=== PATIENT | male | born 1955 | race Caucasian/White ===

== ENCOUNTER 2021-03-30 17:16 | Emergency (ER) | payer OTHER ==
[~2021-03-30] VITALS: Ht 177.8 cm; Wt 90.0 kg
--- NOTE | 2021-03-30 17:28 | NUR ---
Pt brought in by ems from home with chief complaint of feeling poor, n/v/d, and abd pain for past 4 days. PT is alert and oriented. VSS.
--- NOTE | 2021-03-30 17:41 | NUR ---
ERMD Crista at bedside for eval
[2021-03-30] MEDS ORDERED: ONDANSETRON 2MG/ML, 2ML ONE (17:55)
[2021-03-30] MEDS ORDERED: MORPHINE SULFATE 4 MG/ML, 1ML ONE ×2 (17:56→19:00)
[2021-03-30] MEDS: MORPHINE SULFATE 4 MG/ML, 1ML IVPush PRN ×2 (17:57→19:03)
[2021-03-30] MEDS ORDERED: ONDANSETRON 2MG/ML, 2ML IVPush ONE (18:00)
[2021-03-30] MEDS ORDERED: PLEASE ENTER ALLERGIES MC SCH (18:00)
[2021-03-30] MEDS ORDERED: SODIUM CHLORIDE 0.9% 1,000ML IVBOLUS ONE (18:00)
[2021-03-30 18:26] LABS: MICROSCOPIC INDICATED
[2021-03-30 18:27] LABS: BASOPHILS % (AUTO) 1 % (0-1); EOSINOPHILS % (AUTO) 0 % (1-7); LYMPHOCYTES % (AUTO) 27 % (22-44); MEAN CORPUSCULAR HEMOGLOBIN 33.1 pg (27.5-34.5); MEAN CORPUSCULAR HGB CONC 35.8 g/dL (33.2-36.2); MEAN PLATELET VOLUME 6.6 fL (7.4-10.4); MONOCYTES % (AUTO) 9 % (2-9); NEUTROPHILS % (AUTO) 64 % (42-75); PLATELET COUNT 317 x10^3/uL (130-400); RED BLOOD COUNT 5.11 x10^6/uL (4.38-5.82); RED CELL DISTRIBUTION WIDTH 13.8 % (9.4-14.8)
[2021-03-30 18:37] LABS: ALBUMIN 3.8 g/dL (3.4-5.0); ANION GAP 7 mmol/L (5-15); CALCIUM 9.2 mg/dL (8.5-10.1); CHLORIDE 106 mmol/L (98-107)
[2021-03-30 18:43] LABS: ALANINE AMINOTRANSFERASE 25 U/L (12-78); ALKALINE PHOSPHATASE 145 U/L (45-117); BILIRUBIN,TOTAL 1.1 mg/dL (0.2-1.0); TOTAL PROTEIN 7.8 g/dL (6.4-8.2); TROPONIN I < 0.015 ng/mL (0.000-0.045)
--- NOTE | 2021-03-30 18:48 | NUR ---
report to lashanda goodman
--- NOTE | 2021-03-30 18:53 | NUR ---
FIRST CONTACT WITH PATIENT. PATIENT LYING IN STRECHER C/O OF PAIN. VITAL SIGNS COMPLETED: PATIENT HYPERTENSIVE- WILL GIVE MEDS. SEE EMAR. CALL PARADA IN REACH, BED IN LOW POSITION. WILL CONTINUE TO MONITOR.
[2021-03-30] MEDS ORDERED: hydrALAzine 20 MG/ML, 1ML IV ONE (19:00)
[2021-03-30] MEDS ORDERED: hydrALAzine 20 MG/ML, 1ML ONE (19:00)
--- NOTE | 2021-03-30 19:57 | NUR ---
PATIENT TO CT AT THIS TIME.
[2021-03-30] MEDS ORDERED: OMNIPAQUE 350 MG/ML, 100ML BOTTLE ONE (20:25)
[2021-03-30 21:15] VITALS: BP 116/77
--- NOTE | 2021-03-30 21:15 | NUR ---
Patient given discharge instructions and they have confirmed that they understand the instructions. Patient ambulatory with steady gait. NAD, all questions answered appropriately, denies additional needs at this time. No personal belongings left in room after discharge.
== END 2021-03-30 21:24 | disposition home or self-care (01) ==
LOC: ED 21:15
DX: K29.00 Acute gastritis without bleeding (principal); R10.13 Epigastric pain; R10.12 Left upper quadrant pain; I49.3 Ventricular premature depolarization; I10 Essential (primary) hypertension; F17.200 Nicotine dependence, unspecified, uncomplicated; Z90.49 Acquired absence of other specified parts of digestive tract; Z86.19 Personal history of other infectious and parasitic diseases
CPT/HCPCS: 36415; 71045; 74177; 80053; 81001; 83690; 84484; 85025; 93005; 96361; 96374; 96375; 96376; 99285; J0360; J2270; J2405; J7030; Q9967